=== PATIENT | female | born 1985 | race Caucasian/White ===

== ENCOUNTER 2016-07-12 15:26 | Inpatient (IN) | payer MEDICARE, MEDICAID ==
[~2016-07-12] VITALS: Ht 162.6 cm; Wt 70.3 kg
[~2016-07-12 15:26] MED LIST: BENZ0.5T6 PO; CEPH250 PO; HALO10 PO; PREN90 PO
[2016-07-12] MEDS ORDERED: LITH300C3 PO (15:53)
[2016-07-12 16:23] LABS: BASOPHILS % (AUTO) 0.4 % (0.0-2.0); EOSINOPHILS % (AUTO) 0.3 % (1.0-6.0); HEMATOCRIT 39.9 % (36-46); LYMPHOCYTES # (AUTO) 2.2 K/uL (1.0-4.8); LYMPHOCYTES % (AUTO) 25.5 % (22.0-44.0); MEAN CORPUSCULAR HEMOGLOBIN 29.9 pg (26.0-34.0); MEAN CORPUSCULAR HGB CONC 32.7 G/dL (31.0-37.0); MEAN CORPUSCULAR VOLUME 91 fL (80-100); MONOCYTES # (AUTO) 0.8 K/uL (0.1-1.0); MONOCYTES % (AUTO) 9.9 % (2.0-9.0); NEUTROPHILS # (AUTO) 5.4 K/uL (1.8-7.7); NEUTROPHILS % (AUTO) 63.9 % (40.0-70.0); PLATELET COUNT (AUTO) 316 K/uL (150-450); RED BLOOD CELL COUNT(AUTO) 4.37 MIL/uL (4.00-5.20); RED CELL DISTRIBUTION WIDTH 13.6 % (11.5-14.5); WHITE BLOOD COUNT (AUTO) 8.4 K/uL (4.5-11.0)
[2016-07-12 16:33] LABS: ANION GAP 10 mmol/L (8-16); CALCIUM, TOTAL 9.1 mg/dL (8.8-10.5); CARBON DIOXIDE 24 mmol/L (22-29); CHLORIDE 104 mmol/L (98-107); CREATININE 1.16 mg/dL (0.60-1.30); GLOMERULAR FILTR. RATE CALC 55 mL/min (>60); POTASSIUM 3.2 mmol/L (3.5-5.1); SODIUM SERUM 138 mmol/L (136-145); UREA NITROGEN, BLOOD 8 mg/dL (7-18)
[2016-07-12 16:39] LABS: ALANINE AMINOTRANSFERASE 42 U/L (12-78); ALBUMIN 4.3 g/dL (3.4-5.0); ASPARTATE AMINOTRANSFERASE 41 U/L (15-37); BILIRUBIN,TOTAL 0.3 mg/dL (0.1-1.0)
[2016-07-12 16:46] LABS: LITHIUM 0.41 mmol/L (0.60-1.20)
[2016-07-12] MEDS ORDERED: HALOPERIDOL 5 MG TABLET PO ONE (17:15)
[2016-07-12] MEDS ORDERED: LORazepam 2 MG TABLET PO ONE (17:15)
[2016-07-12] MEDS: TOPIRAMATE 100 MG TABLET PO SCH (19:25)
[2016-07-12] MEDS: LITHIUM CARBONATE 300 MG CAPSULE PO SCH (20:38)
[2016-07-12 20:43] VITALS: BP 111/66
[2016-07-12] MEDS ORDERED: POTASSIUM CHLORIDE 20 MEQ ER TABLET PO ONE (21:30)
[2016-07-13 05:04] VITALS: BP 113/77
[2016-07-13 08:02] VITALS: BP 109/72
[2016-07-13] MEDS: TOPIRAMATE 100 MG TABLET PO SCH ×2 (08:38→16:23)
[2016-07-13] MEDS: ARIPiprazole 10 MG TABLET PO SCH (08:38)
[2016-07-13 08:41] LABS: POTASSIUM 3.4 mmol/L (3.5-5.1)
[2016-07-13] MEDS ORDERED: POTASSIUM CHLORIDE 20 MEQ ER TABLET PO ONE (11:45)
[2016-07-13 16:03] VITALS: BP 111/70
[2016-07-13] MEDS ORDERED: IBUPROFEN 400 MG TABLET PO PRN (17:30)
[2016-07-13] MEDS: LORazepam 2 MG TABLET PO PRN (20:28)
[2016-07-13] MEDS: LITHIUM CARBONATE 300 MG CAPSULE PO SCH (20:29)
[2016-07-14 00:14] VITALS: BP 109/76
[2016-07-14 08:40] VITALS: BP 118/80
[2016-07-14] MEDS: PRENATAL VIT#96/FERROUS FUM/FA TABLET PO SCH (08:40)
[2016-07-14] MEDS: ARIPiprazole 10 MG TABLET PO SCH (08:40)
[2016-07-14] MEDS: TOPIRAMATE 100 MG TABLET PO SCH ×2 (08:40→16:08)
[2016-07-14] MEDS: ACETAMINOPHEN 325 MG TABLET PO PRN (09:49)
[2016-07-14 09:59] LABS: POTASSIUM 4.1 mmol/L (3.5-5.1); THYROID STIMULATING HORMONE 1.22 uIU/mL (0.36-3.74)
[2016-07-14 16:17] VITALS: BP 122/76
[2016-07-14] MEDS: ALBUTEROL SULFATE HFA 90 MCG/PUFF 8 GM INHALER IH PRN (17:17)
[2016-07-14 19:40] VITALS: BP 155/94
[2016-07-14] MEDS: LITHIUM CARBONATE 300 MG CAPSULE PO SCH (20:13)
[2016-07-14 20:30] VITALS: BP 117/71
[2016-07-14] MEDS: ZOLPIDEM TARTRATE 10 MG TABLET PO PRN (21:06)
[2016-07-14] MEDS ORDERED: HYPROMELLOSE 0.5% 15 ML OPHTHALMIC SOLUTION OU PRN (23:15)
[2016-07-15 01:11] VITALS: BP 110/74
[2016-07-15] MEDS: LORazepam 2 MG TABLET PO PRN ×2 (01:11→19:27)
[2016-07-15 08:46] VITALS: BP 125/75
[2016-07-15] MEDS: TOPIRAMATE 100 MG TABLET PO SCH ×2 (09:42→16:12)
[2016-07-15] MEDS: PRENATAL VIT#96/FERROUS FUM/FA TABLET PO SCH (09:43)
[2016-07-15] MEDS: ARIPiprazole 10 MG TABLET PO SCH (09:43)
[2016-07-15] MEDS: HALOPERIDOL 5 MG TABLET PO PRN (15:16)
[2016-07-15 16:07] VITALS: BP 117/79
[2016-07-15] MEDS: LITHIUM CARBONATE 300 MG CAPSULE PO SCH (20:38)
[2016-07-16 05:45] VITALS: BP 124/85
[2016-07-16 08:04] VITALS: BP 113/72
[2016-07-16] MEDS: PRENATAL VIT#96/FERROUS FUM/FA TABLET PO SCH (09:19)
[2016-07-16] MEDS: TOPIRAMATE 100 MG TABLET PO SCH ×2 (09:19→16:12)
[2016-07-16] MEDS: ARIPiprazole 10 MG TABLET PO SCH (09:19)
[2016-07-16] MEDS: HALOPERIDOL 5 MG TABLET PO PRN (09:22)
[2016-07-16 16:02] VITALS: BP 126/81
[2016-07-16] MEDS: ONDANSETRON HCL 4 MG TABLET PO PRN (19:05)
[2016-07-16] MEDS: LITHIUM CARBONATE 300 MG CAPSULE PO SCH (21:07)
[2016-07-16 22:25] VITALS: BP 108/71
[2016-07-16] MEDS: ALBUTEROL SULFATE HFA 90 MCG/PUFF 8 GM INHALER IH PRN (22:56)
[2016-07-17 00:45] VITALS: BP 118/86
[2016-07-17] MEDS: ONDANSETRON HCL 4 MG TABLET PO PRN (04:07)
[2016-07-17 08:09] VITALS: BP 122/75
[2016-07-17] MEDS: TOPIRAMATE 100 MG TABLET PO SCH ×2 (08:50→16:34)
[2016-07-17] MEDS: PRENATAL VIT#96/FERROUS FUM/FA TABLET PO SCH (08:50)
[2016-07-17] MEDS: ARIPiprazole 10 MG TABLET PO SCH (08:50)
[2016-07-17 16:07] VITALS: BP 121/77
[2016-07-17] MEDS: LITHIUM CARBONATE 300 MG CAPSULE PO SCH (20:28)
[2016-07-17] MEDS: LORazepam 2 MG TABLET PO PRN (21:20)
[2016-07-18 04:58] VITALS: BP 111/65
[2016-07-18] MEDS: ACETAMINOPHEN 325 MG TABLET PO PRN (05:20)
[2016-07-18] MEDS: LORazepam 2 MG TABLET PO PRN ×3 (07:05→23:31)
[2016-07-18 08:16] VITALS: BP 116/84
[2016-07-18] MEDS: PRENATAL VIT#96/FERROUS FUM/FA TABLET PO SCH (08:38)
[2016-07-18] MEDS: ARIPiprazole 10 MG TABLET PO SCH (08:38)
[2016-07-18] MEDS: TOPIRAMATE 100 MG TABLET PO SCH ×2 (08:38→16:17)
[2016-07-18] MEDS: ONDANSETRON HCL 4 MG TABLET PO PRN (13:13)
[2016-07-18 16:15] VITALS: BP 116/65
[2016-07-18] MEDS: LITHIUM CARBONATE 300 MG CAPSULE PO SCH (20:12)
[2016-07-19 00:10] VITALS: BP 118/65
[2016-07-19] MEDS: ZOLPIDEM TARTRATE 10 MG TABLET PO PRN (00:14)
[2016-07-19 00:37] VITALS: BP 116/68
[2016-07-19] MEDS: PRENATAL VIT#96/FERROUS FUM/FA TABLET PO SCH (08:26)
[2016-07-19] MEDS: TOPIRAMATE 100 MG TABLET PO SCH (08:26)
[2016-07-19] MEDS: ARIPiprazole 10 MG TABLET PO SCH (08:26)
[2016-07-19 08:36] VITALS: BP 112/65
[2016-07-19] MEDS ORDERED: TOPI100 PO (12:57)
[2016-07-19] MEDS ORDERED: ARIP10TA14 PO (12:57)
== END 2016-07-19 14:15 | disposition home or self-care (01) | DRG 885 ==
LOC: EMS 15:31 → B2X 18:04
PROVIDERS: ADMIT Psychiatry & Neurology Psychiatry; ATTEND Psychiatry & Neurology Psychiatry
DX: F20.0 Paranoid schizophrenia (principal); F10.231 Alcohol dependence with withdrawal delirium; E87.6 Hypokalemia; F31.9 Bipolar disorder, unspecified; F29 Unspecified psychosis not due to a substance or known physiological condition; J45.909 Unspecified asthma, uncomplicated; Z79.899 Other long term (current) drug therapy; Z98.890 Other specified postprocedural states
CPT/HCPCS: 84132; 84443; 99285; G0480; J3535; Q0162

== ENCOUNTER 2016-07-19 16:11 | Inpatient (IN) | payer MEDICARE, MEDICAID ==
[~2016-07-19] VITALS: Ht 162.6 cm; Wt 69.1 kg
[~2016-07-19 16:11] MED LIST changes: +ARIP10TA14 PO; +LITH300C3 PO; +TOPI100 PO
[2016-07-19 16:56] LABS: BASOPHILS % (AUTO) 0.3 % (0.0-2.0); EOSINOPHILS % (AUTO) 0.8 % (1.0-6.0); HEMATOCRIT 42.9 % (36-46); HEMOGLOBIN 14.1 g/dL (12.0-16.0); LYMPHOCYTES # (AUTO) 2.8 K/uL (1.0-4.8); LYMPHOCYTES % (AUTO) 34.2 % (22.0-44.0); MEAN CORPUSCULAR HGB CONC 32.7 G/dL (31.0-37.0); MEAN CORPUSCULAR VOLUME 92 fL (80-100); MONOCYTES # (AUTO) 0.8 K/uL (0.1-1.0); MONOCYTES % (AUTO) 10.4 % (2.0-9.0); NEUTROPHILS # (AUTO) 4.4 K/uL (1.8-7.7); NEUTROPHILS % (AUTO) 54.3 % (40.0-70.0); PLATELET COUNT (AUTO) 310 K/uL (150-450); RED BLOOD CELL COUNT(AUTO) 4.69 MIL/uL (4.00-5.20); RED CELL DISTRIBUTION WIDTH 13.5 % (11.5-14.5); WHITE BLOOD COUNT (AUTO) 8.2 K/uL (4.5-11.0)
[2016-07-19 17:28] LABS: ALANINE AMINOTRANSFERASE 47 U/L (12-78); ALBUMIN 4.3 g/dL (3.4-5.0); ANION GAP 12 mmol/L (8-16); ASPARTATE AMINOTRANSFERASE 27 U/L (15-37); BILIRUBIN,TOTAL 0.2 mg/dL (0.1-1.0); CARBON DIOXIDE 24 mmol/L (22-29); CHLORIDE 105 mmol/L (98-107); CREATININE 1.16 mg/dL (0.60-1.30); GLOMERULAR FILTR. RATE CALC 55 mL/min (>60); POTASSIUM 3.9 mmol/L (3.5-5.1); SODIUM SERUM 141 mmol/L (136-145); TOTAL PROTEIN, SERUM 8.1 g/dL (6.4-8.2); UREA NITROGEN, BLOOD 18 mg/dL (7-18)
[2016-07-19 21:38] LABS: APPEARANCE,URINE CLOUDY (CLEAR); GLUCOSE, URINE (UA) NEGATIVE (NEGATIVE); KETONES,URINE NEGATIVE (NEGATIVE); LEUKOCYTE ESTERASE ,URINE NEGATIVE (NEGATIVE); OCCULT BLOOD,URINE TRACE (NEGATIVE); PH,URINE 7.5 (5.0-8.0); PROTEIN,URINE NEGATIVE (NEGATIVE)
[2016-07-19 21:39] LABS: ADD UA MICROSCOPIC YES
[2016-07-19] MEDS: HALOPERIDOL 5 MG TABLET PO PRN (21:48)
[2016-07-19] MEDS: LORazepam 2 MG TABLET PO PRN (21:48)
[2016-07-19 22:04] LABS: AMORPHOUS SEDIMENT,UR Few /LPF (None Seen); SQUAMOUS EPITHELIAL CELL,UR Few /LPF (None Seen)
[2016-07-19 22:05] LABS: RBC,URINE 0-2 /HPF (0-2); WBC,URINE 0-2 /HPF (0-5)
[2016-07-19 22:35] VITALS: BP 114/76
[2016-07-19] MEDS ORDERED: IBUPROFEN 400 MG TABLET PO PRN (22:45)
[2016-07-19] MEDS ORDERED: HYPROMELLOSE 0.5% 15 ML OPHTHALMIC SOLUTION OU PRN (22:45)
[2016-07-19] MEDS ORDERED: ONDANSETRON HCL 4 MG TABLET PO PRN (22:45)
[2016-07-20] MEDS: ACETAMINOPHEN 325 MG TABLET PO PRN (04:51)
[2016-07-20 04:53] VITALS: BP 110/71
[2016-07-20 09:23] VITALS: BP 136/72
[2016-07-20] MEDS: PRENATAL VIT#96/FERROUS FUM/FA TABLET PO SCH (09:41)
[2016-07-20] MEDS: ARIPiprazole 10 MG TABLET PO SCH (09:41)
[2016-07-20] MEDS: TOPIRAMATE 100 MG TABLET PO SCH ×2 (09:41→16:17)
[2016-07-20] MEDS: LORazepam 2 MG TABLET PO PRN (09:56)
[2016-07-20] MEDS: HALOPERIDOL 5 MG TABLET PO PRN (12:31)
[2016-07-20 17:18] VITALS: BP 128/76
[2016-07-20] MEDS ORDERED: LITHIUM CARBONATE 300 MG CAPSULE PO SCH (21:00)
[2016-07-21] MEDS: LORazepam 2 MG TABLET PO PRN (07:50)
[2016-07-21] MEDS: ARIPiprazole 10 MG TABLET PO SCH (08:48)
[2016-07-21] MEDS: PRENATAL VIT#96/FERROUS FUM/FA TABLET PO SCH (08:49)
[2016-07-21] MEDS: TOPIRAMATE 100 MG TABLET PO SCH ×2 (08:49→16:02)
[2016-07-21 09:53] VITALS: BP 101/56
[2016-07-21] MEDS ORDERED: LOPERAMIDE HCL 2 MG CAPSULE PO PRN (12:00)
[2016-07-21 16:01] VITALS: BP 113/67
[2016-07-21] MEDS: ZOLPIDEM TARTRATE 10 MG TABLET PO PRN (21:25)
[2016-07-22 04:03] VITALS: BP 100/68
[2016-07-22] MEDS: PRENATAL VIT#96/FERROUS FUM/FA TABLET PO SCH (08:30)
[2016-07-22] MEDS: ARIPiprazole 10 MG TABLET PO SCH (08:30)
[2016-07-22] MEDS: TOPIRAMATE 100 MG TABLET PO SCH ×2 (08:30→16:11)
[2016-07-22] MEDS: LORazepam 2 MG TABLET PO PRN (08:31)
[2016-07-22 08:32] VITALS: BP 114/68
[2016-07-22] MEDS: RisperiDONE 3 MG TABLET PO SCH (16:11)
[2016-07-22 21:13] VITALS: BP 114/69
[2016-07-23] MEDS: ALBUTEROL SULFATE HFA 90 MCG/PUFF 8 GM INHALER IH PRN (00:46)
[2016-07-23 00:47] VITALS: BP 117/70
[2016-07-23 05:34] VITALS: BP 107/73
[2016-07-23 08:05] VITALS: BP 112/68
[2016-07-23] MEDS: TOPIRAMATE 100 MG TABLET PO SCH ×2 (08:50→18:01)
[2016-07-23] MEDS: PRENATAL VIT#96/FERROUS FUM/FA TABLET PO SCH (08:50)
[2016-07-23] MEDS: RisperiDONE 3 MG TABLET PO SCH ×2 (08:50→18:01)
[2016-07-23] MEDS: LORazepam 2 MG TABLET PO PRN ×2 (14:20→20:22)
[2016-07-23 16:27] VITALS: BP 117/73
[2016-07-23 19:18] LABS: APPEARANCE,URINE CLEAR (CLEAR); GLUCOSE, URINE (UA) NEGATIVE (NEGATIVE); KETONES,URINE NEGATIVE (NEGATIVE); LEUKOCYTE ESTERASE ,URINE NEGATIVE (NEGATIVE); OCCULT BLOOD,URINE NEGATIVE (NEGATIVE); PH,URINE 5.5 (5.0-8.0); PROTEIN,URINE NEGATIVE (NEGATIVE)
[2016-07-23 19:22] LABS: ADD UA MICROSCOPIC NO
[2016-07-23] MEDS: HALOPERIDOL 5 MG TABLET PO PRN (20:22)
[2016-07-24 08:05] VITALS: BP 125/67
[2016-07-24] MEDS: TOPIRAMATE 100 MG TABLET PO SCH ×2 (08:49→16:16)
[2016-07-24] MEDS: RisperiDONE 3 MG TABLET PO SCH ×2 (08:49→16:16)
[2016-07-24] MEDS: PRENATAL VIT#96/FERROUS FUM/FA TABLET PO SCH (08:49)
[2016-07-24 17:00] VITALS: BP 126/79
[2016-07-25] MEDS: LORazepam 2 MG TABLET PO PRN (00:02)
[2016-07-25 00:03] VITALS: BP 109/78
[2016-07-25 08:05] VITALS: BP 121/73
[2016-07-25] MEDS: TOPIRAMATE 100 MG TABLET PO SCH ×2 (08:19→16:55)
[2016-07-25] MEDS: RisperiDONE 3 MG TABLET PO SCH ×2 (08:19→16:56)
[2016-07-25] MEDS: PRENATAL VIT#96/FERROUS FUM/FA TABLET PO SCH (08:19)
[2016-07-25 16:07] VITALS: BP 117/73
[2016-07-26 08:48] VITALS: BP 128/62
[2016-07-26] MEDS: RisperiDONE 3 MG TABLET PO SCH ×2 (08:52→17:00)
[2016-07-26] MEDS: TOPIRAMATE 100 MG TABLET PO SCH ×2 (08:52→17:00)
[2016-07-26] MEDS: PRENATAL VIT#96/FERROUS FUM/FA TABLET PO SCH (08:52)
[2016-07-26 16:39] VITALS: BP 103/73
[2016-07-26] MEDS: ZOLPIDEM TARTRATE 10 MG TABLET PO PRN (20:40)
[2016-07-26] MEDS: HALOPERIDOL 5 MG TABLET PO PRN (21:03)
[2016-07-27 08:00] VITALS: BP 97/65
[2016-07-27] MEDS: PRENATAL VIT#96/FERROUS FUM/FA TABLET PO SCH (08:19)
[2016-07-27] MEDS: RisperiDONE 3 MG TABLET PO SCH ×2 (08:19→16:22)
[2016-07-27] MEDS: TOPIRAMATE 100 MG TABLET PO SCH ×2 (08:19→16:22)
[2016-07-27] MEDS: LORazepam 2 MG TABLET PO PRN (16:21)
[2016-07-27 16:26] VITALS: BP 117/77
[2016-07-28] MEDS: BENZOCAINE/MENTHOL LOZENGE [8 LOZENGES/PACKET] PO PRN ×2 (05:15→14:32)
[2016-07-28] MEDS: PRENATAL VIT#96/FERROUS FUM/FA TABLET PO SCH (08:26)
[2016-07-28] MEDS: RisperiDONE 3 MG TABLET PO SCH ×2 (08:26→16:34)
[2016-07-28] MEDS: TOPIRAMATE 100 MG TABLET PO SCH (08:27)
[2016-07-28 10:10] VITALS: BP 101/61
[2016-07-28] MEDS: LORazepam 2 MG TABLET PO PRN (12:07)
[2016-07-28] MEDS: HALOPERIDOL 5 MG TABLET PO PRN ×2 (12:19→18:31)
[2016-07-28 16:25] VITALS: BP 115/71
[2016-07-29 08:00] VITALS: BP 100/58
[2016-07-29] MEDS: RisperiDONE 3 MG TABLET PO SCH ×2 (08:02→18:33)
[2016-07-29] MEDS: PRENATAL VIT#96/FERROUS FUM/FA TABLET PO SCH (08:03)
[2016-07-29] MEDS: BENZOCAINE/MENTHOL LOZENGE [8 LOZENGES/PACKET] PO PRN (08:03)
[2016-07-29] MEDS: LORazepam 2 MG TABLET PO PRN (12:56)
[2016-07-29] MEDS: HALOPERIDOL 5 MG TABLET PO PRN (18:33)
[2016-07-29 19:14] VITALS: BP 117/68
[2016-07-30] MEDS: RisperiDONE 3 MG TABLET PO SCH ×2 (07:53→16:54)
[2016-07-30] MEDS: PRENATAL VIT#96/FERROUS FUM/FA TABLET PO SCH (07:53)
[2016-07-30] MEDS: ALBUTEROL SULFATE HFA 90 MCG/PUFF 8 GM INHALER IH PRN (08:14)
[2016-07-30 08:30] VITALS: BP 106/64
[2016-07-30] MEDS: BENZOCAINE/MENTHOL LOZENGE [8 LOZENGES/PACKET] PO PRN (10:28)
[2016-07-30] MEDS: LORazepam 2 MG TABLET PO PRN (16:01)
[2016-07-30 17:08] VITALS: BP 111/69
[2016-07-30] MEDS: ZOLPIDEM TARTRATE 10 MG TABLET PO PRN (20:46)
[2016-07-31] MEDS: PRENATAL VIT#96/FERROUS FUM/FA TABLET PO SCH (08:45)
[2016-07-31] MEDS: RisperiDONE 3 MG TABLET PO SCH ×2 (08:45→16:01)
[2016-07-31] MEDS: BENZOCAINE/MENTHOL LOZENGE [8 LOZENGES/PACKET] PO PRN (08:46)
[2016-07-31 10:25] VITALS: BP 99/71
[2016-07-31] MEDS: GuaiFENesin [SUGAR-FREE] 200 MG/10 ML SOLUTION UDCUP PO PRN ×2 (12:47→20:53)
[2016-07-31] MEDS: LORazepam 2 MG TABLET PO PRN (16:01)
[2016-07-31 19:38] VITALS: BP 103/65
[2016-07-31] MEDS: ZOLPIDEM TARTRATE 10 MG TABLET PO PRN (20:33)
[2016-07-31] MEDS: ALBUTEROL SULFATE HFA 90 MCG/PUFF 8 GM INHALER IH PRN (21:06)
[2016-08-01] MEDS: RisperiDONE 3 MG TABLET PO SCH ×2 (08:24→16:41)
[2016-08-01] MEDS: PRENATAL VIT#96/FERROUS FUM/FA TABLET PO SCH (08:24)
[2016-08-01] MEDS: GuaiFENesin [SUGAR-FREE] 200 MG/10 ML SOLUTION UDCUP PO PRN ×2 (08:25→18:48)
[2016-08-01 09:59] VITALS: BP 106/78
[2016-08-01 16:49] VITALS: BP 102/62
[2016-08-01] MEDS: ACETAMINOPHEN 325 MG TABLET PO PRN (17:46)
[2016-08-01] MEDS: ALBUTEROL SULFATE HFA 90 MCG/PUFF 8 GM INHALER IH PRN (18:41)
[2016-08-01] MEDS: ZOLPIDEM TARTRATE 10 MG TABLET PO PRN (20:13)
[2016-08-01] MEDS: BENZOCAINE/MENTHOL LOZENGE [8 LOZENGES/PACKET] PO PRN (22:47)
[2016-08-02] MEDS: PRENATAL VIT#96/FERROUS FUM/FA TABLET PO SCH (08:28)
[2016-08-02] MEDS: RisperiDONE 3 MG TABLET PO SCH ×2 (08:28→17:24)
[2016-08-02] MEDS: GuaiFENesin [SUGAR-FREE] 200 MG/10 ML SOLUTION UDCUP PO PRN (08:28)
[2016-08-02 09:43] VITALS: BP 96/64
[2016-08-02] MEDS: ALBUTEROL SULFATE HFA 90 MCG/PUFF 8 GM INHALER IH PRN (12:35)
[2016-08-02 16:48] VITALS: BP 106/61
[2016-08-03] MEDS: PRENATAL VIT#96/FERROUS FUM/FA TABLET PO SCH (08:00)
[2016-08-03] MEDS: RisperiDONE 3 MG TABLET PO SCH (08:00)
[2016-08-03 08:05] VITALS: BP 94/55
[2016-08-03] MEDS ORDERED: PREN-134 PO (09:04)
[2016-08-03] MEDS ORDERED: RISP3 PO (09:04)
== END 2016-08-03 15:30 | disposition home or self-care (01) | DRG 885 ==
LOC: EEVIPCON 16:13 → EMS 16:13 → 3EX 21:20
PROVIDERS: ADMIT Psychiatry & Neurology Psychiatry; ATTEND Psychiatry & Neurology Psychiatry
DX: F25.9 Schizoaffective disorder, unspecified (principal); J45.909 Unspecified asthma, uncomplicated; F31.9 Bipolar disorder, unspecified; F41.9 Anxiety disorder, unspecified; R74.0 Nonspecific elevation of levels of transaminase and lactic acid dehydrogenase [LDH]; Z98.890 Other specified postprocedural states; Z79.899 Other long term (current) drug therapy
CPT/HCPCS: 87081; 99285; G0480; J3535; Q0162

== ENCOUNTER 2016-08-13 18:23 | Inpatient (IN) | payer MEDICAID, MEDICARE ==
[~2016-08-13] VITALS: Ht 315 cm; Wt 73.3 kg
[~2016-08-13 18:23] MED LIST changes: -ARIP10TA14 PO; -BENZ0.5T6 PO; -CEPH250 PO; -HALO10 PO; -LITH300C3 PO; +PREN-134 PO; -PREN90 PO; +RISP3 PO; -TOPI100 PO
[2016-08-13 18:59] VITALS: BP 116/58
[2016-08-13] MEDS ORDERED: PNEUMOCOCCAL VACCINE POLYVALENT 0.5 ML VIAL [PPSV23] IM ONE (19:30)
[2016-08-13] MEDS: ZOLPIDEM TARTRATE 10 MG TABLET PO PRN (21:01)
[2016-08-14 01:08] VITALS: BP 103/71
[2016-08-14 07:49] LABS: BASOPHILS # (AUTO) 0.03 K/uL (0.00-0.20); BASOPHILS % (AUTO) 0.4 % (0.0-2.0); EOSINOPHILS % (AUTO) 1.32 % (1.0-6.0); HEMATOCRIT 42.6 % (36-46); HEMOGLOBIN 14.2 g/dL (12.0-16.0); LYMPHOCYTES # (AUTO) 2.5 K/uL (1.0-4.8); LYMPHOCYTES % (AUTO) 31.2 % (22.0-44.0); MEAN CORPUSCULAR HGB CONC 33.4 G/dL (31.0-37.0); MEAN CORPUSCULAR VOLUME 90 fL (80-100); MONOCYTES # (AUTO) 0.7 K/uL (0.1-1.0); MONOCYTES % (AUTO) 8.2 % (2.0-9.0); NEUTROPHILS # (AUTO) 4.7 K/uL (1.8-7.7); PLATELET COUNT (AUTO) 298 K/uL (150-450); RED BLOOD CELL COUNT(AUTO) 4.74 MIL/uL (4.00-5.20); RED CELL DISTRIBUTION WIDTH 13.6 % (11.5-14.5); WHITE BLOOD COUNT (AUTO) 7.9 K/uL (4.5-11.0)
[2016-08-14 08:10] LABS: HEMOGLOBIN A1C 5.5 % (4.5-6.2)
[2016-08-14 08:22] VITALS: BP 103/71
[2016-08-14 09:03] LABS: ALANINE AMINOTRANSFERASE 29 U/L (12-78); ANION GAP 10 mmol/L (8-16); ASPARTATE AMINOTRANSFERASE 18 U/L (15-37); BILIRUBIN,TOTAL 0.4 mg/dL (0.1-1.0); CALCIUM, TOTAL 8.6 mg/dL (8.8-10.5); CARBON DIOXIDE 28 mmol/L (22-29); CHLORIDE 104 mmol/L (98-107); CHOL/HDL RATIO 3.4 (3.9-5.7); CREATININE 0.77 mg/dL (0.60-1.30); GLOMERULAR FILTR. RATE CALC > 60 mL/min (>60); POTASSIUM 3.9 mmol/L (3.5-5.1); SODIUM SERUM 142 mmol/L (136-145); THYROID STIMULATING HORMONE 1.99 uIU/mL (0.36-3.74); TOTAL PROTEIN, SERUM 7.9 g/dL (6.4-8.2); UREA NITROGEN, BLOOD 10 mg/dL (7-18)
[2016-08-14] MEDS: HALOPERIDOL 5 MG TABLET PO PRN ×2 (09:37→14:38)
[2016-08-14] MEDS ORDERED: ACETAMINOPHEN 325 MG TABLET PO PRN ×2 (14:15→22:45)
[2016-08-14 16:10] VITALS: BP 108/65
[2016-08-14] MEDS ORDERED: DiphenhydrAMINE HCL 50 MG/ML VIAL IM ONE (18:00)
[2016-08-14] MEDS: BENZTROPINE MESYLATE 2 MG TABLET PO SCH (20:35)
[2016-08-14] MEDS: ZOLPIDEM TARTRATE 10 MG TABLET PO PRN (21:15)
[2016-08-14] MEDS ORDERED: IBUPROFEN 400 MG TABLET PO PRN (22:45)
[2016-08-15 01:46] VITALS: BP 100/61
[2016-08-15] MEDS: ALBUTEROL SULFATE HFA 90 MCG/PUFF 8 GM INHALER IH PRN ×2 (01:54→17:09)
[2016-08-15] MEDS: HALOPERIDOL 5 MG TABLET PO PRN ×2 (04:28→16:34)
[2016-08-15 08:07] VITALS: BP 118/72
[2016-08-15] MEDS: LORazepam 2 MG TABLET PO PRN ×2 (09:10→19:39)
[2016-08-15 16:11] VITALS: BP 102/65
[2016-08-15] MEDS: BENZTROPINE MESYLATE 2 MG TABLET PO SCH (20:34)
[2016-08-16 00:43] VITALS: BP 112/62
[2016-08-16] MEDS: HALOPERIDOL 5 MG TABLET PO PRN (04:23)
[2016-08-16 08:07] VITALS: BP 107/69
[2016-08-16] MEDS: LORazepam 2 MG TABLET PO PRN ×3 (08:24→18:26)
[2016-08-16] MEDS: ALBUTEROL SULFATE HFA 90 MCG/PUFF 8 GM INHALER IH PRN (12:32)
[2016-08-16] MEDS: BuPROPion HCL 75 MG TABLET PO SCH (16:09)
[2016-08-16 16:15] VITALS: BP 106/68
[2016-08-16] MEDS: ZOLPIDEM TARTRATE 10 MG TABLET PO PRN (20:52)
[2016-08-16] MEDS: BENZTROPINE MESYLATE 2 MG TABLET PO SCH (21:02)
[2016-08-17] MEDS: ALBUTEROL SULFATE HFA 90 MCG/PUFF 8 GM INHALER IH PRN (00:12)
[2016-08-17] MEDS: LORazepam 2 MG TABLET PO PRN (00:48)
[2016-08-17 03:39] VITALS: BP 111/64
[2016-08-17 08:08] VITALS: BP 122/73
[2016-08-17] MEDS: BuPROPion HCL 75 MG TABLET PO SCH (08:18)
[2016-08-17 16:05] VITALS: BP 124/69
[2016-08-17] MEDS: HALOPERIDOL 5 MG TABLET PO PRN (20:27)
[2016-08-17] MEDS: BENZTROPINE MESYLATE 2 MG TABLET PO SCH (20:27)
[2016-08-18 00:30] VITALS: BP 103/61
[2016-08-18 08:00] VITALS: BP 110/60
[2016-08-18] MEDS: BuPROPion HCL 75 MG TABLET PO SCH (08:09)
[2016-08-18] MEDS: HALOPERIDOL 5 MG TABLET PO PRN ×2 (08:09→16:48)
[2016-08-18 08:43] LABS: APPEARANCE,URINE CLEAR (CLEAR); GLUCOSE, URINE (UA) NEGATIVE (NEGATIVE); KETONES,URINE NEGATIVE (NEGATIVE); LEUKOCYTE ESTERASE ,URINE NEGATIVE (NEGATIVE); OCCULT BLOOD,URINE NEGATIVE (NEGATIVE); PH,URINE 7.5 (5.0-8.0); PROTEIN,URINE NEGATIVE (NEGATIVE)
[2016-08-18 08:45] LABS: ADD UA MICROSCOPIC NO
[2016-08-18] MEDS: LORazepam 2 MG TABLET PO PRN (12:58)
[2016-08-18] MEDS: ALBUTEROL SULFATE HFA 90 MCG/PUFF 8 GM INHALER IH PRN (13:34)
[2016-08-18 16:08] VITALS: BP 115/64
[2016-08-18] MEDS: BENZTROPINE MESYLATE 2 MG TABLET PO SCH (20:24)
[2016-08-18] MEDS: ZOLPIDEM TARTRATE 10 MG TABLET PO PRN (20:55)
[2016-08-19 01:08] VITALS: BP 106/60
[2016-08-19] MEDS: BuPROPion HCL 75 MG TABLET PO SCH (08:03)
[2016-08-19] MEDS: HALOPERIDOL 5 MG TABLET PO PRN ×2 (08:03→16:39)
[2016-08-19] MEDS: ACYCLOVIR 200 MG CAPSULE PO SCH ×3 (08:03→16:33)
[2016-08-19 08:25] VITALS: BP 111/66
[2016-08-19 16:09] VITALS: BP 116/66
[2016-08-19] MEDS: BENZTROPINE MESYLATE 2 MG TABLET PO SCH (20:20)
[2016-08-19] MEDS: ZOLPIDEM TARTRATE 10 MG TABLET PO PRN (20:51)
[2016-08-20 04:58] VITALS: BP 101/61
[2016-08-20] MEDS ORDERED: GuaiFENesin/D-METHORPHAN [SUGAR-FREE] 200-20MG/10 ML SYRUP UDCUP PO PRN (06:30)
[2016-08-20] MEDS ORDERED: BENZOCAINE/MENTHOL LOZENGE PO PRN (06:30)
[2016-08-20 08:08] VITALS: BP 115/63
[2016-08-20] MEDS: BuPROPion HCL 75 MG TABLET PO SCH (08:12)
[2016-08-20] MEDS: ACYCLOVIR 200 MG CAPSULE PO SCH ×3 (08:12→16:32)
[2016-08-20] MEDS: LORazepam 2 MG TABLET PO PRN (14:35)
[2016-08-20 16:10] VITALS: BP 110/73
[2016-08-20] MEDS: HALOPERIDOL 5 MG TABLET PO PRN (18:43)
[2016-08-20] MEDS: BENZTROPINE MESYLATE 2 MG TABLET PO SCH (20:25)
[2016-08-21 06:08] VITALS: BP 107/63
[2016-08-21 08:07] VITALS: BP 120/65
[2016-08-21] MEDS: ACYCLOVIR 200 MG CAPSULE PO SCH ×3 (08:29→16:38)
[2016-08-21] MEDS: BuPROPion HCL 75 MG TABLET PO SCH (08:29)
[2016-08-21 16:50] VITALS: BP 106/59
[2016-08-21 18:56] VITALS: BP 115/67
[2016-08-21] MEDS: BENZTROPINE MESYLATE 2 MG TABLET PO SCH (20:39)
[2016-08-21] MEDS: ZOLPIDEM TARTRATE 10 MG TABLET PO PRN (22:14)
[2016-08-22 03:42] VITALS: BP 102/62
[2016-08-22 08:07] VITALS: BP 112/64
[2016-08-22] MEDS: ACYCLOVIR 200 MG CAPSULE PO SCH ×2 (08:23→12:53)
[2016-08-22] MEDS: BuPROPion HCL 75 MG TABLET PO SCH (08:24)
[2016-08-22] MEDS ORDERED: BENZOCAINE 10% 7 GM GEL TP SCH (10:15)
[2016-08-22] MEDS ORDERED: ALBU8HFA4 IH (11:30)
[2016-08-22] MEDS ORDERED: BUPR75 PO (11:30)
[2016-08-22] MEDS ORDERED: ACYC200C PO (11:30)
[2016-08-22] MEDS ORDERED: BENZ2TAB10 PO (11:30)
[2016-08-22] MEDS ORDERED: [UNRECOGNIZED DRUG - CODE] (11:41)
== END 2016-08-22 13:25 | disposition home or self-care (01) | DRG 885 ==
LOC: B2X 18:41 → EDSTATUS 18:51
PROVIDERS: ADMIT Psychiatry & Neurology Psychiatry; ATTEND Psychiatry & Neurology Psychiatry
DX: F20.0 Paranoid schizophrenia (principal); E83.51 Hypocalcemia; Z79.899 Other long term (current) drug therapy; J45.909 Unspecified asthma, uncomplicated; F41.9 Anxiety disorder, unspecified; E78.5 Hyperlipidemia, unspecified; F31.9 Bipolar disorder, unspecified; Z28.21 Immunization not carried out because of patient refusal; Z79.51 Long term (current) use of inhaled steroids
CPT/HCPCS: 83036; 84439; 84443; 86592; 87081; J1200; J3535

== ENCOUNTER 2019-08-02 19:23 | Inpatient (IN) | payer MEDICARE, MEDICAID ==
[~2019-08-02] VITALS: Ht 162.6 cm; Wt 77.6 kg
[~2019-08-02 19:23] MED LIST changes: +CLOZ100 PO; +DSS100 PO; +OMEG-116 PO; +OMEP20 PO; -PREN-134 PO; -RISP3 PO; +SIMV-259 PO
[2019-08-03] MEDS ORDERED: HALOPERIDOL 5 MG TABLET PO PRN
[2019-08-03] MEDS ORDERED: ZOLPIDEM TARTRATE 10 MG TABLET PO PRN
[2019-08-03] MEDS ORDERED: LORazepam 1 MG TABLET PO PRN
[2019-08-03] MEDS ORDERED: ONDANSETRON HCL 4 MG TABLET PO PRN (00:15)
[2019-08-03 00:56] VITALS: BP 108/65
[2019-08-03] MEDS ORDERED: -PHARMACY VACCINE NOTE- MISC ONE (02:00)
[2019-08-03 08:03] LABS: BASOPHILS % (AUTO) 0.5 % (0.0-2.0); EOSINOPHILS % (AUTO) 0.7 % (1.0-6.0); HEMATOCRIT 36.8 % (36-46); HEMOGLOBIN 12.4 g/dL (12.0-16.0); LYMPHOCYTES % (AUTO) 36.9 % (22.0-44.0); MEAN CORPUSCULAR HGB CONC 33.8 G/dL (31.0-37.0); MEAN CORPUSCULAR VOLUME 89 fL (80-100); MONOCYTES # (AUTO) 0.7 K/uL (0.1-1.0); MONOCYTES % (AUTO) 6.8 % (2.0-9.0); NEUTROPHILS % (AUTO) 55.1 % (40.0-70.0); PLATELET COUNT (AUTO) 305 K/uL (150-450); RED BLOOD CELL COUNT(AUTO) 4.14 MIL/uL (4.00-5.20); RED CELL DISTRIBUTION WIDTH 13.2 % (11.5-14.5)
[2019-08-03 08:18] LABS: APPEARANCE,URINE CLOUDY (CLEAR); BILIRUBIN,URINE NEGATIVE (NEGATIVE); GLUCOSE, URINE (UA) NEGATIVE (NEGATIVE); KETONES,URINE NEGATIVE (NEGATIVE); LEUKOCYTE ESTERASE ,URINE SMALL (NEGATIVE); NITRATE,URINE NEGATIVE (NEGATIVE); OCCULT BLOOD,URINE NEGATIVE (NEGATIVE); PROTEIN,URINE NEGATIVE (NEGATIVE)
[2019-08-03 08:24] LABS: AMPHET/METH SCREEN,URINE NEGATIVE (NEGATIVE); BARBITURATE SCREEN, URINE NEGATIVE (NEGATIVE); BENZODIAZEPINES SCREEN,URINE NEGATIVE (NEGATIVE); CANNABINOID SCREEN,URINE NEGATIVE (NEGATIVE); COCAINE SCREEN,URINE NEGATIVE (NEGATIVE); METHADONE SCREEN, URINE NEGATIVE (NEGATIVE); OPIATE SCREEN,URINE NEGATIVE (NEGATIVE)
[2019-08-03 08:25] LABS: PHENCYCLIDINE SCREEN,URINE NEGATIVE (NEGATIVE)
[2019-08-03 08:26] LABS: BACTERIA,URINE None Seen /HPF (None Seen); RBC,URINE None Seen /HPF (0-2)
[2019-08-03 08:27] LABS: AMORPHOUS SEDIMENT,UR Few /LPF (None Seen); SQUAMOUS EPITHELIAL CELL,UR Moderate /LPF (None Seen)
[2019-08-03 08:32] LABS: ALANINE AMINOTRANSFERASE 18 U/L (12-78); ALBUMIN 3.2 g/dL (3.4-5.0); ALKALINE PHOSPHATASE 64 U/L (46-116); ANION GAP 11 mmol/L (8-16); ASPARTATE AMINOTRANSFERASE 11 U/L (15-37); BILIRUBIN,TOTAL 0.1 mg/dL (0.1-1.0); CALCIUM, TOTAL 8.4 mg/dL (8.8-10.5); CARBON DIOXIDE 20 mmol/L (22-29); CHLORIDE 108 mmol/L (98-107); CHOLESTEROL 93 mg/dL (131-200); CREATININE 0.97 mg/dL (0.60-1.30); FREE T4 (FREE THYROXINE) 1.03 ng/dL (0.76-1.46); GLOMERULAR FILTR. RATE CALC > 60 mL/min (>60); GLUCOSE,RANDOM 106 mg/dL (70-110); HCG,QUANTITATIVE < 1 mIU/mL (0-6); HDL CHOLESTEROL 31 mg/dL (40-60); LDL CHOL (CALC.) 9 mg/dL (0-130); POTASSIUM 3.6 mmol/L (3.5-5.1); SODIUM SERUM 139 mmol/L (136-145); THYROID STIMULATING HORMONE 0.87 uIU/mL (0.36-3.74); TOTAL PROTEIN, SERUM 6.7 g/dL (6.4-8.2); TRIGLYCERIDES 265 mg/dL (15-150); UREA NITROGEN, BLOOD 15 mg/dL (7-18)
[2019-08-03 11:21] VITALS: BP 100/70
[2019-08-03 16:53] VITALS: BP 112/90
[2019-08-03] MEDS ORDERED: BISACODYL 5 MG EC TABLET PO PRN (20:30)
[2019-08-03] MEDS: ALBUTEROL SULFATE HFA 90 MCG/PUFF 8 GM INHALER IH PRN (21:41)
[2019-08-04 01:07] VITALS: BP 105/63
[2019-08-04 08:18] VITALS: BP 101/60
[2019-08-04] MEDS ORDERED: OMEGA-3/DHA/EPA/FISH OIL 500 MG CAPSULE PO SCH (09:00)
[2019-08-04] MEDS: OMEPRAZOLE 20 MG CAPSULE PO SCH (09:08)
[2019-08-04 17:45] VITALS: BP 106/80
[2019-08-04] MEDS: TOPIRAMATE 100 MG TABLET PO SCH (20:53)
[2019-08-04] MEDS: BENZTROPINE MESYLATE 2 MG TABLET PO SCH (20:54)
[2019-08-04] MEDS: LORazepam 0.5 MG TABLET PO SCH (20:54)
[2019-08-04] MEDS: CloZAPine 100 MG TABLET PO SCH (20:54)
[2019-08-04] MEDS: LURASIDONE HCL 40 MG TABLET PO SCH (21:19)
[2019-08-04] MEDS ORDERED: LORATADINE 10 MG TABLET PO PRN (23:15)
[2019-08-05 03:26] VITALS: BP 107/67
[2019-08-05 08:18] VITALS: BP 109/62
[2019-08-05] MEDS: CloZAPine 100 MG TABLET PO SCH ×2 (08:31→16:33)
[2019-08-05] MEDS: OMEPRAZOLE 20 MG CAPSULE PO SCH (08:31)
[2019-08-05] MEDS: TOPIRAMATE 100 MG TABLET PO SCH ×2 (08:31→16:33)
[2019-08-05] MEDS: OMEGA-3/DHA/EPA/FISH OIL 1,000 MG CAPSULE PO SCH (08:31)
[2019-08-05 16:20] VITALS: BP 112/66
[2019-08-05] MEDS: ALBUTEROL SULFATE HFA 90 MCG/PUFF 8 GM INHALER IH PRN (16:26)
[2019-08-05] MEDS ORDERED: CloZAPine 100 MG TABLET PO SCH (17:00)
[2019-08-05] MEDS ORDERED: TOPIRAMATE 100 MG TABLET PO SCH (17:00)
[2019-08-05] MEDS: BENZTROPINE MESYLATE 2 MG TABLET PO SCH (20:30)
[2019-08-05] MEDS: LORazepam 0.5 MG TABLET PO SCH (20:30)
[2019-08-05] MEDS: LURASIDONE HCL 40 MG TABLET PO SCH (20:30)
[2019-08-06 00:52] VITALS: BP 110/63
[2019-08-06] MEDS: OMEPRAZOLE 20 MG CAPSULE PO SCH (08:32)
[2019-08-06] MEDS: CloZAPine 100 MG TABLET PO SCH (08:33)
[2019-08-06] MEDS: TOPIRAMATE 100 MG TABLET PO SCH (08:33)
[2019-08-06] MEDS: OMEGA-3/DHA/EPA/FISH OIL 1,000 MG CAPSULE PO SCH (08:33)
[2019-08-06 08:43] VITALS: BP 103/69
[2019-08-06] MEDS ORDERED: CLOZ100 PO (08:44)
[2019-08-06] MEDS ORDERED: TOPI100T37 PO (08:44)
[2019-08-06] MEDS ORDERED: OMEG-48 PO (08:44)
[2019-08-06] MEDS ORDERED: LURA40 PO (08:44)
[2019-08-06] MEDS ORDERED: BENZ2TAB10 PO (08:44)
[2019-08-06] MEDS ORDERED: DOCUSATE SODIUM 100 MG CAPSULE PO SCH (09:00)
== END 2019-08-06 13:20 | disposition home or self-care (01) | DRG 885 ==
LOC: B2X 08-03 00:15
PROVIDERS: ADMIT Psychiatry & Neurology Psychiatry; ATTEND Psychiatry & Neurology Psychiatry
DX: F25.9 Schizoaffective disorder, unspecified (principal); F50.2 Bulimia nervosa; N39.0 Urinary tract infection, site not specified; J45.909 Unspecified asthma, uncomplicated; K21.9 Gastro-esophageal reflux disease without esophagitis; K59.00 Constipation, unspecified; R73.03 Prediabetes; E78.5 Hyperlipidemia, unspecified; E78.1 Pure hyperglyceridemia
CPT/HCPCS: 80307; 83036; 84439; 84443; 86592; J3535; Q0162